=== PATIENT | female | born 1970 | race Caucasian/White ===

== ENCOUNTER 2023-11-20 19:45 | Inpatient (IN) | payer OTHER, MEDICAID ==
[~2023-11-20] VITALS: Ht 149.9 cm; Wt 105.2 kg
[2023-11-20 19:45] VITALS: BP 120/62; PULSE 70; RESP 20; TEMP 97.6; O2SAT 96
[2023-11-20] MEDS ORDERED: KCL 20 MEQ IN 100 mL PREMIX 200 ML IV PRN (21:55)
[2023-11-20] MEDS ORDERED: MAG SULF 2000 MG/WATER PREMIX 50 ML IV PRN (21:55)
[2023-11-20] MEDS ORDERED: ACETAMINOPHEN 325 MG TAB PO PRN (21:55)
[2023-11-20] MEDS ORDERED: LORazepam 1 MG TAB PO PRN (21:55)
[2023-11-20] MEDS ORDERED: POTASSIUM CHLORIDE 10 MEQ TABER PO PRN (21:55)
[2023-11-20] MEDS ORDERED: ONDANSETRON 4 MG/2 ML VIAL IVP PRN (21:55)
[2023-11-20] MEDS ORDERED: MORPHINE SULFATE ORAL SOLN 2 MG/ML UDC PO PRN (22:55)
[2023-11-20] MEDS: MORPHINE TAB ER 15 MG TABER PO ONE (23:47)
[2023-11-21] MEDS: ZOLPIDEM 5 MG TAB PO PRN (01:27)
[2023-11-21 04:00] VITALS: BP 153/90; PULSE 77; RESP 18; TEMP 97; O2SAT 97
[2023-11-21 06:58] LABS: ANION GAP 11.1 (8-16); CARBON DIOXIDE 29.9 mmol/L (21-32)
[2023-11-21 06:59] LABS: BASOPHILS # (AUTO) 0.1 K/uL (0.00-0.22); BASOPHILS % (AUTO) 1.2 % (0.0-2.0); EOSINOPHILS # (AUTO) 0.2 K/uL (0-0.4); EOSINOPHILS % (AUTO) 2.4 % (0.0-4.0); HEMATOCRIT 38.6 % (36-48); HEMOGLOBIN 13.1 g/dL (12.0-16.0); LYMPHOCYTES # (AUTO) 2.2 K/uL (2.5-16.5); LYMPHOCYTES % (AUTO) 31.5 % (20.5-51.1); MEAN CORPUSCULAR HEMOGLOBIN 30 pg (27-31); MEAN CORPUSCULAR HGB CONC 34 g/dL (33-37); MEAN CORPUSCULAR VOLUME 88.9 fL (80-94); MONOCYTES # (AUTO) 0.6 K/uL (0.8-1.0); MONOCYTES % (AUTO) 8.2 % (1.7-9.3); NEUTROPHILS % (AUTO) 56.7 % (42.2-75.2); PLATELET COUNT (AUTO) 377 K/uL (140-450); RED BLOOD CELL COUNT(AUTO) 4.34 MIL/uL (4.20-5.40); RED CELL DISTRIBUTION WIDTH 14.3 % (11.6-13.7); WHITE BLOOD COUNT (AUTO) 7.1 K/uL (4.8-10.8)
[2023-11-21] MEDS ORDERED: DULO60EC75 PO (13:00)
[2023-11-21] MEDS ORDERED: MSCON15 PO (13:07)
[2023-11-21] MEDS ORDERED: BUPR200T1 PO (13:07)
[2023-11-21] MEDS ORDERED: TIZA4CAP PO (13:07)
[2023-11-21] MEDS ORDERED: ACET-8905 PO (13:11)
[2023-11-21 16:00] VITALS: BP 133/64; PULSE 65; RESP 20; TEMP 97.2; O2SAT 97
[2023-11-21] MEDS ORDERED: NON-FORMULARY ITEM (Tizanidine HCl* (Zanaflex*) 4 MG) PO SCH (17:00)
[2023-11-21] MEDS: HYDROcodone/APAP 5/325 MG 1 TAB TAB PO PRN (18:32)
[2023-11-21 20:00] VITALS: BP 161/83; PULSE 85; RESP 18; TEMP 97.2; O2SAT 97
[2023-11-21] MEDS: MORPHINE TAB ER 15 MG TABER PO SCH (20:23)
[2023-11-21] MEDS: WELLBUTRIN 200 MG PO SCH (21:00)
[2023-11-21] MEDS ORDERED: DULOXETINE HCL 60 MG PO SCH (21:00)
[2023-11-21] MEDS ORDERED: BUPROPION HCL 200 MG PO SCH (21:00)
[2023-11-22 04:00] VITALS: BP 157/73; PULSE 79; RESP 18; TEMP 96.5; O2SAT 94
[2023-11-22 07:12] LABS: BASOPHILS # (AUTO) 0.1 K/uL (0.00-0.22); EOSINOPHILS # (AUTO) 0.1 K/uL (0-0.4); EOSINOPHILS % (AUTO) 1.1 % (0.0-4.0); HEMOGLOBIN 13.6 g/dL (12.0-16.0); LYMPHOCYTES # (AUTO) 2.2 K/uL (2.5-16.5); LYMPHOCYTES % (AUTO) 31.1 % (20.5-51.1); MEAN CORPUSCULAR HEMOGLOBIN 30 pg (27-31); MEAN CORPUSCULAR HGB CONC 34 g/dL (33-37); MEAN CORPUSCULAR VOLUME 88.1 fL (80-94); MONOCYTES # (AUTO) 0.5 K/uL (0.8-1.0); MONOCYTES % (AUTO) 7.7 % (1.7-9.3); NEUTROPHILS # (AUTO) 4.1 K/uL (1.8-7.7); NEUTROPHILS % (AUTO) 59.1 % (42.2-75.2); PLATELET COUNT (AUTO) 237 K/uL (140-450); RED BLOOD CELL COUNT(AUTO) 4.54 MIL/uL (4.20-5.40); RED CELL DISTRIBUTION WIDTH 14.3 % (11.6-13.7); WHITE BLOOD COUNT (AUTO) 6.9 K/uL (4.8-10.8)
[2023-11-22 07:39] LABS: ANION GAP 16.1 (8-16); CALCIUM 9.1 mg/dL (8.5-10.1); CARBON DIOXIDE 23.5 mmol/L (21-32); CREATININE 0.9 mg/dL (0.6-1.3); POTASSIUM 4.6 mmol/L (3.5-5.1)
[2023-11-22 08:00] VITALS: PULSE 85; RESP 18; O2SAT 97
[2023-11-22] MEDS: DULoxetine 30 MG CAPDR PO SCH (08:20)
[2023-11-22] MEDS: buPROPion 150 MG TABER PO SCH (08:58)
[2023-11-22 16:00] VITALS: BP 146/72; PULSE 74; RESP 18; TEMP 98.2; O2SAT 97
[2023-11-22 20:00] VITALS: PULSE 69; RESP 20
[2023-11-22] MEDS: tiZANidine 4 MG TAB PO SCH (20:19)
[2023-11-23] MEDS: tiZANidine 4 MG TAB PO PRN (03:50)
[2023-11-23 04:40] VITALS: BP 127/62; PULSE 82; RESP 20; TEMP 97.1; O2SAT 94
[2023-11-23 06:36] LABS: BASOPHILS # (AUTO) 0.1 K/uL (0.00-0.22); BASOPHILS % (AUTO) 1.1 % (0.0-2.0); EOSINOPHILS # (AUTO) 0.1 K/uL (0-0.4); EOSINOPHILS % (AUTO) 1.3 % (0.0-4.0); HEMATOCRIT 40.2 % (36-48); HEMOGLOBIN 13.5 g/dL (12.0-16.0); LYMPHOCYTES # (AUTO) 1.8 K/uL (2.5-16.5); LYMPHOCYTES % (AUTO) 32.5 % (20.5-51.1); MEAN CORPUSCULAR HEMOGLOBIN 30 pg (27-31); MEAN CORPUSCULAR HGB CONC 34 g/dL (33-37); MEAN CORPUSCULAR VOLUME 88.2 fL (80-94); MONOCYTES # (AUTO) 0.4 K/uL (0.8-1.0); NEUTROPHILS # (AUTO) 3.1 K/uL (1.8-7.7); NEUTROPHILS % (AUTO) 57.1 % (42.2-75.2); PLATELET COUNT (AUTO) 280 K/uL (140-450); RED BLOOD CELL COUNT(AUTO) 4.55 MIL/uL (4.20-5.40); RED CELL DISTRIBUTION WIDTH 14.2 % (11.6-13.7); WHITE BLOOD COUNT (AUTO) 5.5 K/uL (4.8-10.8)
[2023-11-23 07:09] LABS: ANION GAP 11.9 (8-16); CARBON DIOXIDE 27.4 mmol/L (21-32); POTASSIUM 4.3 mmol/L (3.5-5.1)
[2023-11-23 08:00] VITALS: PULSE 61; RESP 20
[2023-11-23] MEDS: GABAPENTIN 300 MG CAP PO SCH (09:02)
[2023-11-23 16:12] VITALS: BP 145/75; PULSE 61; RESP 20; TEMP 98.1
== END 2023-11-23 17:40 | DRG 641 ==
LOC: MMU 19:45 → INTOOBSV 19:45 → OBSVTOIN 21:56
PROVIDERS: ADMIT Hospitalist; ATTEND Hospitalist
DX: E86.0 Dehydration (principal); N17.9 Acute kidney failure, unspecified; G89.29 Other chronic pain; F41.9 Anxiety disorder, unspecified; F32.A Depression, unspecified
CPT/HCPCS: 36415; 80048; 82140; 83735; 85025; 87081; 97112; 97530; J1644